=== PATIENT | male | born 1975 | race Two or more races ===

== ENCOUNTER 2019-06-18 21:21 | Emergency (ER) | payer BC ==
[2019-06-18 21:34] VITALS: BP 130/79; PULSE 77; TEMP 98.3; BMI 19.5
--- NOTE | 2019-06-18 22:14 | PDOC ---
History of Present Illness - General Chief Complaint: Nasal Bleeding Stated Complaint: NOSE BLEED Time Seen by Provider: 06/18/19 22:08 - History of Present Illness Initial Comments: 06/18/19 22:10 43-year-old male without comorbidities presents for evaluation of nasal bleeding intermittent since 4 days ago no systemic symptoms no trauma Past History - Past Medical History Allergies/Adverse Reactions: Allergies Allergy/AdvReac Type Severity Reaction Status Date / Time No Known Allergies Allergy Verified 06/18/19 21:29 COPD: No - Psycho Social/Smoking Cessation Hx Smoking History: Never smoked Have you smoked in the past 12 months: Yes Number of Cigarettes Smoked Daily: 2 Information on smoking cessation initiated: Yes Hx Alcohol Use: Yes Drug/Substance Use Hx: No Review of Systems - Review of Systems HEENTM: Yes: Nose Bleeding *Physical Exam - Vital Signs Last Vital Signs Temp Pulse Resp BP Pulse Ox 98.3 F 77 18 130/79 98 06/18/19 21:30 06/18/19 21:30 06/18/19 21:30 06/18/19 21:30 06/18/19 21:30 - Physical Exam Comments: 06/18/19 22:11 GENERAL: The patient is awake, alert, and fully oriented, in no acute distress. HEAD: Normal with no signs of trauma. EYES: sclera anicteric, conjunctiva clear. ENT: Ears normal; tympanic membranes normal, oropharynx clear, nares normal NECK: Normal range of motion LUNGS: Breath sounds equal, clear to auscultation bilaterally. No wheezes, and no crackles. HEART: S1 and S2 without murmur, rub or gallop. ABDOMEN: Soft, nontender, normoactive bowel sounds. No guarding, no rebound. No masses. EXTREMITIES: Normal range of motion, no edema. No clubbing or cyanosis. No cords, erythema, or tenderness. NEUROLOGICAL: Cranial nerves II through XII grossly intact. Normal speech, normal gait. PSYCH: Normal mood, normal affect. SKIN: Warm, Dry, normal turgor, no rashes or lesions noted. Medical Decision Making - Medical Decision Making 06/18/19 22:11 No indication of bleeding or trauma today. Recommended Afrin for nasal spray for vasoconstrictive purposes when needed and follow-up with ENT Discharge - Discharge Information Problems reviewed: Yes Clinical Impression/Diagnosis: Nasal bleeding Condition: Stable Disposition: HOME - Admission No - Follow up/Referral Referrals: Jesse Guzman MD [Staff Physician] - - Patient Discharge Instructions Additional Instructions: You may use Afrin nasal spray as directed if you experience a nosebleed you may put Afrin on a cottonball and placed a cotton ball into the nostril that is bleeding. Follow-up with ear nose and throat doctor in 1 to 2 days for further evaluation and treatment options and return to the emergency room should symptoms worsen or return - Post Discharge Activity
== END 2019-06-18 22:47 | disposition home or self-care (01) ==
LOC: JER 21:21
DX: R04.0 Epistaxis (principal); Z72.0 Tobacco use
CPT/HCPCS: 99281-25